=== PATIENT | male | born 1945 | race Two or more races ===

== ENCOUNTER 2019-02-26 13:17 | Outpatient (CLI) | payer OTHER ==
[~2019-02-26 13:17] MED LIST: ZITHROMAX500 MG; [UNRECOGNIZED DRUG - MIXTURE]
== END 2019-02-26 13:27 | disposition home or self-care (01) ==
LOC: TOM 13:17
DX: N40.1 Benign prostatic hyperplasia with lower urinary tract symptoms (principal); C67.9 Malignant neoplasm of bladder, unspecified

== ENCOUNTER 2019-08-09 09:44 | Outpatient (CLI) | payer OTHER | END 2019-08-09 09:50 | disposition home or self-care (01) | LOC: LAB 09:44 | DX: E11.9 Type 2 diabetes mellitus without complications (principal); C67.8 Malignant neoplasm of overlapping sites of bladder ==

== ENCOUNTER 2019-08-28 05:45 | Day surgery (SDC) | payer OTHER ==
[~2019-08-28 05:45] MED LIST changes: +COUMADIN3 MG PO; +GABAPENTIN100 M2 PO; +INDUR PO; +JANUMET XR 50-1 EAC1 PO; +LANTUS SOL100 UNIT/1; +PEPCID AC20 MG PO; +REGLAN; +TAMS0.4C PO; +UCERIS9 MG PO; +ULTRAM50 MG PO; +ZOCOR20 MG PO
== END 2019-08-28 17:50 | disposition home or self-care (01) ==
LOC: CIR.AMB 05:45
DX: D30.3 Benign neoplasm of bladder (principal)

== ENCOUNTER 2023-04-14 09:17 | Outpatient (CLI) | payer OTHER | END 2023-04-14 09:23 | disposition home or self-care (01) | LOC: RX STUDY 09:17 | DX: R13.14 Dysphagia, pharyngoesophageal phase (principal) ==